=== PATIENT | male | born 1995 | race Two or more races ===

== ENCOUNTER 2017-03-02 15:03 | Observation (INO) | payer MEDICAID ==
[~2017-03-02] VITALS: Ht 182.9 cm; Wt 102.5 kg
[~2017-03-02 15:03] MED LIST: IOHEXOL-300 100 ML BOTTLE ONE; SODIUM CHLORIDE 0.9% 10ML VIAL ONE
[2017-03-02] MEDS ORDERED: ONDANSETRON HCL 4MG/2ML VIAL IV STA (16:19)
[2017-03-02] MEDS ORDERED: MORPHINE SULFATE 4 MG/ML CPJ (NOT FOR IM USE) IV STA (16:19)
[2017-03-02 16:51] LABS: CLARITY URINE CLEAR (CLEAR); COLOR URINE DARK YELLOW (YELLOW); GLUCOSE URINE NEGATIVE (NEGATIVE); KETONES URINE 1+ (NEGATIVE); LEUKOCYTE ESTERASE URINE NEGATIVE (NEGATIVE); NITRITE URINE NEGATIVE (NEGATIVE); OCCULT BLOOD URINE NEGATIVE (NEGATIVE); PROTEIN URINE 1+ (NEGATIVE); SPECIFIC GRAVITY URINE 1.025 (1.005-1.030)
[2017-03-02 17:06] LABS: BACTERIA URINE TRACE; SQUAMOUS EPITHELIAL CELL URINE RARE /lpf (RARE/1+)
[2017-03-02 17:07] LABS: RBC URINE NONE SEEN /hpf (0-2); WBC URINE NONE SEEN /hpf (0-2)
[2017-03-02 17:35] LABS: HEMATOCRIT. 39.8 % (42.0-52.0); HEMOGLOBIN. 13.5 g/dL (14.0-18.0); MEAN CORPUSCULAR HEMOGLOBIN 28.7 pg (28.0-32.0); MEAN CORPUSCULAR VOLUME 84.5 fL (80.0-94.0); MEAN PLATELET VOLUME 7.7 fl (7.4-10.4); PLATELET 192 x1000/uL (130-400); RED BLOOD CELL COUNT 4.71 mill/uL (4.7-6.1); RED CELL DISTRIBUTION WIDTH 12.9 % (11.6-14.6); WHITE BLOOD COUNT 17.5 x1000/uL (4.5-11.0)
[2017-03-02 17:36] LABS: DIFFERENTIAL COMMENT 1
[2017-03-02 17:40] LABS: CHLORIDE 101 mEq/L (98-107); INDEX HEMOLYSI 1 (1-3); INDEX ICTERIC 1 (1-4); INDEX LIPEMIC 1 (1-3)
[2017-03-02 17:41] LABS: INR 1.1; PROTHROMBIN TIME 11.9 sec
[2017-03-02 17:43] LABS: CALCIUM 8.6 mg/dL (8.5-10.1); LIPASE 102 IU/L (73-393)
[2017-03-02 17:44] LABS: ALBUMIN 3.6 g/dL (3.4-5.0); ANION GAP 13; CARBON DIOXIDE 29 mEq/L (21-32); UREA NITROGEN BLOOD 11 mg/dL (7-21)
[2017-03-02 17:48] LABS: ALANINE AMINOTRANSFERASE 39 IU/L (13-61); eGFR > 60 mL/min (>60)
[2017-03-02 18:59] LABS: ANISOCYTOSIS 1+; ATYPICAL LYMPHOCYTES 1; PLATELET ESTIMATE NORMAL
[2017-03-02] MEDS ORDERED: SODIUM CHLORIDE 0.9% 1,000 ML IV ONE (19:30)
[2017-03-02] MEDS ORDERED: PIPERACILLIN/TAZ 3.375G PREMIX 50 ML IV ONE (19:30)
[2017-03-02] MEDS ORDERED: HYDROMORPHONE HCL/PF 2MG/ML CPJ IV PRN (21:15)
[2017-03-02] MEDS ORDERED: FENTANYL CITRATE/PF 50MCG/ML 2ML VIAL IV PRN (21:15)
[2017-03-02] MEDS ORDERED: ONDANSETRON HCL 4MG/2ML VIAL IV PRN ×2 (21:15→22:15)
[2017-03-02] MEDS ORDERED: BUPIVACAINE HCL/PF 0.5% (5MG/ML) 10ML ONE (21:20)
[2017-03-02] MEDS ORDERED: SKIN ADHESIVE 0.7 GM EA TOP ONE ×2 (21:20→22:17)
[2017-03-02] MEDS ORDERED: SUCCINYLCHOLINE CHLORIDE 200MG/10ML VIAL IV ONE (21:25)
[2017-03-02] MEDS ORDERED: LIDOCAINE HCL 1% 20ML VIAL (Pyxis) INJ ONE (21:25)
[2017-03-02] MEDS ORDERED: ROCURONIUM BROMIDE 10MG/ML VIAL 5ML IV ONE (21:25)
[2017-03-02] MEDS ORDERED: PROPOFOL 200MG/20ML VIAL IV ONE (21:25)
[2017-03-02] MEDS ORDERED: MIDAZOLAM HCL 2 MG/2 ML VIAL ONE (21:26)
[2017-03-02] MEDS ORDERED: MORPHINE SULFATE 2 MG/ML CPJ (NOT FOR IM USE) IV PRN (22:15)
[2017-03-02] MEDS ORDERED: HYDROCODONE/ACETAMINOPHEN 5/325MG TABLET PO PRN (22:15)
[2017-03-02] MEDS ORDERED: MORPHINE SULFATE 4 MG/ML CPJ (NOT FOR IM USE) IV PRN (22:15)
[2017-03-02] MEDS ORDERED: ONDANSETRON HCL 4MG/2ML VIAL ONE (22:19)
[2017-03-02] MEDS ORDERED: FENTANYL CITRATE/PF 50MCG/ML 2ML VIAL ONE (22:28)
[2017-03-02] MEDS ORDERED: GLYCOPYRROLATE 0.2 MG/ML 2ML VIAL ONE (22:48)
[2017-03-02] MEDS ORDERED: NEOSTIGMINE METHYLSULFATE 1MG/ML 10 ML VIAL ONE (22:48)
[2017-03-03 00:20] VITALS: BP 105/68
[2017-03-03 01:30] VITALS: BP 105/68
[2017-03-03] MEDS: DEXT 5%/0.45% NACL KCL 20MEQ/L 1,000 ML IV SCH ×3 (02:29→15:09)
[2017-03-03 04:00] VITALS: BP 114/68
[2017-03-03] MEDS: SODIUM CHLORIDE 0.9% INJ 3ML FLUSH IVF SCH ×2 (05:09→14:00)
[2017-03-03 08:00] VITALS: BP 113/68
[2017-03-03] MEDS: HYDROCODONE/ACETAMINOPHEN 5/325MG TABLET PO PRN ×2 (09:24→15:05)
[2017-03-03 20:08] VITALS: BP 102/65
== END 2017-03-03 21:15 | disposition home or self-care (01) ==
LOC: ER 15:03 → INTOOBSV 20:10 → 8WST 20:10
PROVIDERS: ADMIT Internal Medicine; ATTEND Internal Medicine
DX: K35.80 Unspecified acute appendicitis (principal); K76.0 Fatty (change of) liver, not elsewhere classified; R60.9 Edema, unspecified; E86.0 Dehydration; D72.829 Elevated white blood cell count, unspecified
CPT/HCPCS: 36415; 44970; 74177; 80053; 81001; 83690; 85025; 85610; 88304; 96365; 96375; 96376; 99285; A4216; G0168; G0378; J0330; J2250; J2270; J2405; J2710; J3010; J3490; J7030; Q9967; J2704

== ENCOUNTER 2017-03-08 09:49 | Emergency (ER) | payer MEDICAID ==
[~2017-03-08] VITALS: Ht 182.9 cm; Wt 94.0 kg
[2017-03-08 10:42] VITALS: BP 130/66
== END 2017-03-08 11:05 | disposition home or self-care (01) ==
LOC: ER 10:18
DX: L03.90 Cellulitis, unspecified (principal); Z90.49 Acquired absence of other specified parts of digestive tract
CPT/HCPCS: 99283

== ENCOUNTER 2020-07-28 23:49 | Emergency (ER) | payer SELFPAY ==
[~2020-07-28] VITALS: Ht 185.4 cm; Wt 93.0 kg
[2020-07-29] MEDS ORDERED: TETANUS, DIPHTHERIA, PERTUSSIS VAC/PF 0.5ML (>7YR OLD) IM ONE (00:45)
[2020-07-29] MEDS ORDERED: MORPHINE SULFATE 4 MG/ML CPJ (NOT FOR IM USE) IV ONE (00:45)
[2020-07-29] MEDS ORDERED: ONDANSETRON HCL 4MG/2ML INJ IV ONE (00:45)
[2020-07-29 03:56] VITALS: BP 138/79
== END 2020-07-29 04:17 | disposition home or self-care (01) ==
LOC: ER 23:49
DX: S05.11XA Contusion of eyeball and orbital tissues, right eye, initial encounter (principal); Z90.49 Acquired absence of other specified parts of digestive tract; Y04.0XXA Assault by unarmed brawl or fight, initial encounter; Y93.89 Activity, other specified; Y92.89 Other specified places as the place of occurrence of the external cause; Y99.8 Other external cause status
CPT/HCPCS: 70450; 70486; 90471; 90715; 96374; 96375; 99285; J2270; J2405